=== PATIENT | female | born 1965 | race Hispanic/Latino ===

== ENCOUNTER 2023-05-13 09:58 | Outpatient (CLI) | payer OTHER | END 2023-05-13 09:59 | disposition home or self-care (01) | LOC: CSHLAB 09:58 | PROVIDERS: ATTEND Obstetrics & Gynecology | DX: Z01.818 Encounter for other preprocedural examination (principal); N95.0 Postmenopausal bleeding | CPT/HCPCS: 80048; 85027; 86850; 86900; 86901; 93005; 93010 ==